=== PATIENT | male | born 1985 | race Caucasian/White ===

== ENCOUNTER 2022-05-28 00:04 | Emergency (ER) | payer BC ==
[~2022-05-28] VITALS: Ht 198.1 cm; Wt 97.5 kg
--- NOTE | 2022-05-28 00:30 | NUR ---
Dr. Diaz at bedside. MSE in progress.
[2022-05-28] MEDS ORDERED: IV NORMAL SALINE 1000 ML BAG IV ONE (00:45)
[2022-05-28] MEDS ORDERED: DICY20TA11 PO (00:48)
[2022-05-28 00:49] LABS: HEMATOCRIT 40.8 % (36.7-47.1); MEAN CORPUSCULAR HEMOGLOBIN 29.6 uug (23.8-33.4); MEAN CORPUSCULAR VOLUME 88.2 fL (73.0-96.2); PLATELET COUNT (AUTO) 148 K/uL (152-348)
[2022-05-28] MEDS ORDERED: DICYCLOMINE HCL LIQ 10 MG/5 ML UDC PO ONE (01:00)
[2022-05-28] MEDS ORDERED: LOPERAMIDE HCL 2 MG CAPSULE PO ONE (01:00)
[2022-05-28] MEDS ORDERED: DICYCLOMINE HCL LIQ 10 MG/5 ML UDC ONE (01:02)
[2022-05-28] MEDS ORDERED: LOPERAMIDE HCL 2 MG CAPSULE ONE (01:03)
[2022-05-28 01:18] LABS: CREATININE 1.2 mg/dL (0.6-1.3); POTASSIUM 3.5 mmol/L (3.5-5.1)
[2022-05-28 01:24] LABS: BILIRUBIN,DIRECT 0.1 mg/dL (0.0-0.2); BILIRUBIN,TOTAL 0.5 mg/dL (0.2-1.0); TOTAL PROTEIN, SERUM 7.7 g/dL (6.4-8.2)
--- NOTE | 2022-05-28 01:37 | NUR ---
Patient discharged to home in stable condition. Written and verbal after care instructions given. Patient verbalizes understanding of instructions. Stressed follow up or return to ER for worsening s/s. Patient walked out with steady gait.
[2022-05-28 01:40] VITALS: BP 136/68
== END 2022-05-28 01:41 | disposition home or self-care (01) ==
LOC: ER 00:09
DX: R19.7 Diarrhea, unspecified (principal); R10.84 Generalized abdominal pain; Z87.738 Personal history of other specified (corrected) congenital malformations of digestive system
CPT/HCPCS: 99284; 96360; 80076; 80048; 85025; 36415; J7040; A4663